=== PATIENT | female | born 1950 | race Caucasian/White ===

== ENCOUNTER 2020-10-03 18:03 | Emergency (ER) | payer MEDICARE, BC ==
--- NOTE | 2020-10-03 20:15 | EDM.PDOC ---
ED HPI GENERAL MEDICAL PROBLEM - General Chief Complaint: Upper Extremity Injury/Pain Stated Complaint: RT WRIST INJURY Time Seen by Provider: 10/03/20 18:59 Source of Information: Reports: Patient, RN Notes Reviewed History Limitations: Reports: No Limitations - History of Present Illness INITIAL COMMENTS - FREE TEXT/NARRATIVE: Patient is a 69-year-old male presenting to the emergency department with complaints of pain, swelling, deformity to her right wrist after falling. She states that she stumbled while she was working downstairs and fell forward catching herself with her wrist. She also fell onto her right knee which she had a knee replacement done on approximately 5 months ago so she is concerned that she may have damages. She has been able to bear weight without difficulty. Denies any previous fractures to her right wrist. Treatments PHYSICIAN ASSISTANT PSYCHIATRY: Reports: Other (see below) Other Treatments PHYSICIAN ASSISTANT PSYCHIATRY: none Right Wrist Pain Score (Numeric/FACES): 2 - Related Data Allergies Allergy/AdvReac Type Severity Reaction Status Date / Time No Known Allergies Allergy Verified 05/20/14 21:59 Home Meds: Home Meds Aspirin [Adult Aspirin] 81 mg PO DAILY 03/30/18 [History] Lisinopril 10 mg PO DAILY 03/30/18 [History] [place]-3/DHA/Epa/Fish Oil [Fish Oil 1,000 mg Softgel] 2 each PO DAILY 03/30/18 [History] Ondansetron [Zofran] 4 mg BUCCAL Q6H PRN #5 tab 03/30/18 [Rx] hydroCHLOROthiazide [Hydrochlorothiazide] 12.5 mg PO DAILY 03/30/18 [History] atorvaSTATin [Lipitor] 20 mg PO BEDTIME 10/03/20 [History] Past Medical History HEENT History: Reports: Impaired Vision Cardiovascular History: Reports: Hypertension Gastrointestinal History: Reports: Hemorrhoids - Infectious Disease History Infectious Disease History: Reports: Chicken Pox, Measles, Mumps - Past Surgical History Musculoskeletal Surgical History: Reports: Other (See Below) Other Musculoskeletal Surgeries/Procedures:: right knee videoscopy Social & Family History - Tobacco Use Tobacco Use Status *Q: Former Tobacco User Used Tobacco, but Quit: Yes Month/Year Tobacco Last Used: 30 yr - Caffeine Use Caffeine Use: Reports: Coffee, Soda, Tea - Recreational Drug Use Recreational Drug Use: No Review of Systems - Review of Systems Review Of Systems: Comprehensive ROS is negative, except as noted in HPI. ED EXAM, GENERAL - Physical Exam Exam: See Below Exam Limited By: No Limitations General Appearance: Alert, WD/WN, No Apparent Distress Respiratory/Chest: No Respiratory Distress, Lungs Clear, Normal Breath Sounds, No Accessory Muscle Use, Chest Non-Tender Cardiovascular: Normal Peripheral Pulses, Regular Rate, Rhythm, No Edema, No Gallop, No JVD, No Murmur, No Rub Extremities: Other (Abrasion to the right knee. Edema and deformity to the right wrist. CMS intact distally.) Neurological: Alert, Oriented, CN II-XII Intact, Normal Cognition, Normal Gait, Normal Reflexes, No Motor/Sensory Deficits Psychiatric: Normal Affect, Normal Mood Course - Vital Signs Last Recorded V/S: Last Vital Signs Temp 99.1 F 10/03/20 18:57 Pulse 53 L 10/03/20 18:57 Resp 20 10/03/20 18:57 BP 169/89 H 10/03/20 18:57 Pulse Ox 97 10/03/20 18:57 - Orders/Labs/Meds Orders: Active Orders 24 hr Category Date Time Status Knee Min 4V Rt [CR] Stat Exams 10/03/20 19:24 Taken Wrist Comp Min 3V Rt [CR] Stat Exams 10/03/20 19:24 Taken - Re-Assessments/Exams Free Text/Narrative Re-Assessment/Exam: 10/03/20 20:13 X-ray of the right knee shows no acute abnormalities. X-ray the right wrist shows fractures of both the distal radius and ulna. Images were reviewed by Dr. Yang, orthopedist. Indicate that no reduction is needed as this will require surgical intervention regardless. Patient has been placed in a custom, Ortho- Glass splint. CMS is intact after splint application. We will provide her with an arm sling. Recommend contacting Dr. Yang's office tomorrow to set up follow-up. Discharge instructions as documented. Departure - Departure Time of Disposition: 20:14 Disposition: Home, Self-Care 01 Condition: Good Clinical Impression: Closed fracture of radius and ulna Qualifiers: Encounter type: initial encounter Laterality: right Qualified Code(s): S52.91XA - Unspecified fracture of right forearm, initial encounter for closed fracture; S52.201A - Unspecified fracture of shaft of right ulna, initial encounter for closed fracture - Discharge Information *PRESCRIPTION DRUG MONITORING PROGRAM REVIEWED*: No *COPY OF PRESCRIPTION DRUG MONITORING REPORT IN PATIENT JAIDA: No Instructions: Wrist Fracture Treated With Immobilization, [id number] Referrals: Sonya Franco MD [Primary Care Provider] - Morris Yang MD [Physician] - Additional Instructions: You were seen in the emergency department today for pain, swelling, deformity to your right wrist after falling at home. X-rays were completed of the wrist and showed fractures of both the ulna and the radius. The x-rays of your knee were normal. You have been placed in a splint. This should remain on all times and be kept clean and dry. Recommend intermittent ice and elevation of the extremity. He may use Tylenol and ibuprofen as needed for discomfort. Referral has been sent to orthopedist, Dr. Yang. Contact his office tomorrow to set up follow-up. Return to ER for any new or worsening symptoms of concern. Sepsis Event Note (ED) - Evaluation Sepsis Screening Result: No Definite Risk - Focused Exam Vital Signs: Vital Signs Temp Pulse Resp BP Pulse Ox 10/03/20 18:57 99.1 F 53 L 20 169/89 H 97 - My Orders Last 24 Hours: My Active Orders 10/03/20 19:24 Knee Min 4V Rt [CR] Stat Wrist Comp Min 3V Rt [CR] Stat - Assessment/Plan Last 24 Hours: My Active Orders 10/03/20 19:24 Knee Min 4V Rt [CR] Stat Wrist Comp Min 3V Rt [CR] Stat
--- NOTE | 2020-10-04 06:06 | CR ---
Right wrist: 4 views of the right wrist were obtained. Comparison: No previous wrist study is available. Comminuted distal radial fracture is seen with displacement and impaction. Posterior tilt is noted of the distal radius. Articular extension is noted. Bony densities are noted around the CMC joint of the thumb compatible with degenerative change. Joint space narrowing is also noted within the CMC joint of the thumb. Mild joint space narrowing is noted of the distal navicular bone. Soft tissue swelling is seen. Impression: 1. Comminuted, displaced and angulated distal radial fracture showing articular extension. Fracture shows posteror tilt of the distal radial articular margin. 2. Degenerative change within the right wrist. 3. Soft tissue swelling. Diagnostic code #3
--- NOTE | 2020-10-04 06:16 | CR ---
Right knee: 4 views of the right knee were obtained. Comparison: No prior right knee study. Knee prosthesis is noted. Components are aligned. Small joint effusion is present. Slight osteopenia is noted. No acute fracture, dislocation or other bony abnormality is appreciated. Impression: 1. Knee prosthesis. 2. Small joint effusion is present. 3. Right knee study is otherwise unremarkable. Diagnostic code #2
== END 2020-10-03 20:59 | disposition home or self-care (01) ==
LOC: JD.ED 18:03
DX: S52.501A Unspecified fracture of the lower end of right radius, initial encounter for closed fracture (principal); S52.601A Unspecified fracture of lower end of right ulna, initial encounter for closed fracture; I10 Essential (primary) hypertension; Z79.82 Long term (current) use of aspirin; Z79.899 Other long term (current) drug therapy; Z87.891 Personal history of nicotine dependence; W01.0XXA Fall on same level from slipping, tripping and stumbling without subsequent striking against object, initial encounter
CPT/HCPCS: 29125; 73110-26-RT; 73110-RT; 73564-26-RT; 73564-RT; 99283; 99283-25

== ENCOUNTER 2020-10-07 08:19 | Day surgery (SDC) | payer MEDICARE, BC ==
--- NOTE | 2020-10-07 06:51 | PCM.PREANE ---
Preanesthetic Assessment - Procedure Proposed Procedure: right total knee arthroplasty - Anesthesia/Transfusion/Family Hx Anesthesia History: Prior Anesthesia Without Reaction Family History of Anesthesia Reaction: No Transfusion History: No Prior Transfusion(s) - Review of Systems General: No Symptoms Pulmonary: No Symptoms Cardiovascular: Dyspnea on Exertion Gastrointestinal: No Symptoms Neurological: No Symptoms Other: Reports: None - Physical Assessment NPO Status Date: 10/06/20 NPO Status Time: 00:00 Height: 1.57 m Weight: 72 kg ASA Class: 2 Mental Status: Alert & Oriented x3 Airway Class: Mallampati = 1 Dentition: Reports: Normal Dentition Thyro-Mental Finger Breadths: 3 Mouth Opening Finger Breadths: 3 ROM/Head Extension: Full Lungs: Clear to Auscultation, Normal Respiratory Effort Cardiovascular: Regular Rate, Regular Rhythm - Allergies Allergies/Adverse Reactions: Allergies Allergy/AdvReac Type Severity Reaction Status Date / Time No Known Allergies Allergy Verified 10/06/20 14:32 - Anesthesia Plan Pre-Op Medication Ordered: None - Acknowledgements Anesthesia Type Planned: Spinal, Regional Block (for post-op pain control) Pt an Appropriate Candidate for the Planned Anesthesia: Yes Alternatives and Risks of Anesthesia Discussed w Pt/Guardian: Yes Pt/Guardian Understands and Agrees with Anesthesia Plan: Yes PreAnesthesia Questionnaire HEENT History: Reports: Impaired Vision Cardiovascular History: Reports: Hypertension Gastrointestinal History: Reports: Hemorrhoids - Infectious Disease History Infectious Disease History: Reports: Chicken Pox, Measles, Mumps - Past Surgical History Musculoskeletal Surgical History: Reports: Arthroscopic Knee, Knee Replacement, Other (See Below) Other Musculoskeletal Surgeries/Procedures:: right knee videoscopy - SUBSTANCE USE Tobacco Use Status *Q: Former Tobacco User Tobacco Use Within Last Twelve Months: No Second Hand Smoke Exposure: No Days Per Week of Alcohol Use: 0 Number of Drinks Per Day: 0 Total Drinks Per Week: 0 Recreational Drug Use History: No - HOME MEDS Home Medications: Home Meds Aspirin [Adult Aspirin] 81 mg PO DAILY 03/30/18 [History] Lisinopril 10 mg PO DAILY 03/30/18 [History] hydroCHLOROthiazide [Hydrochlorothiazide] 12.5 mg PO DAILY 03/30/18 [History] atorvaSTATin [Lipitor] 20 mg PO BEDTIME 10/03/20 [History] Acetaminophen/HYDROcodone [[place] 325-5 MG] 1 - 2 tab PO Q4H PRN #30 tablet 10/07/20 [Rx]
[~2020-10-07 08:19] MED LIST: Bupivacaine 0.25% 10 ML SDV ONE; Lactated Ringers 1,000 ML IV SCH
--- NOTE | 2020-10-07 08:27 | PCM.PREANE ---
Preanesthetic Assessment - Procedure Proposed Procedure: ORIF of right distal radius with possible distal radioulnar joint pinning - Anesthesia/Transfusion/Family Hx Anesthesia History: Prior Anesthesia Without Reaction Family History of Anesthesia Reaction: No Transfusion History: No Prior Transfusion(s) Intubation History: Unknown - Review of Systems General: No Symptoms Pulmonary: No Symptoms (Fomer smoker: quit 30 yrs ago./ETOH: occasionally) Cardiovascular: No Symptoms (HTN, elevated cholesterol), Palpitations (occasionally) Gastrointestinal: No Symptoms (GERD-controlled.) Neurological: No Symptoms (motion sickness: scopalamine patch placed.), Syncope (7 yrs ago.) Other: Reports: None - Physical Assessment NPO Status Date: 10/06/20 NPO Status Time: 23:39 Vital Signs: HR: 84 Sat: 96% Temp: 98.1 Resp: 18 B/P: 143/65 Height: 1.65 m Weight: 91 kg ASA Class: 3 Mental Status: Alert & Oriented x3 Airway Class: Mallampati = 3 Dentition: Reports: Normal Dentition, [place] Thyro-Mental Finger Breadths: 3 Mouth Opening Finger Breadths: 3 ROM/Head Extension: Full Lungs: Clear to Auscultation, Normal Respiratory Effort Cardiovascular: Regular Rate, Regular Rhythm, No Murmurs - Lab Values: All labs reviewed and noted and within acceptable ranges to proceed with scheduled procedure. - Imaging/EKG Impressions: EKG: - Allergies Allergies/Adverse Reactions: Allergies Allergy/AdvReac Type Severity Reaction Status Date / Time No Known Allergies Allergy Verified 10/07/20 08:54 - Anesthesia Plan Pre-Op Medication Ordered: None - Acknowledgements Anesthesia Type Planned: General Anesthesia Pt an Appropriate Candidate for the Planned Anesthesia: Yes Alternatives and Risks of Anesthesia Discussed w Pt/Guardian: Yes Pt/Guardian Understands and Agrees with Anesthesia Plan: Yes PreAnesthesia Questionnaire HEENT History: Reports: Impaired Vision Cardiovascular History: Reports: Hypertension Gastrointestinal History: Reports: Hemorrhoids - Infectious Disease History Infectious Disease History: Reports: Chicken Pox, Measles, Mumps - Past Surgical History Musculoskeletal Surgical History: Reports: Arthroscopic Knee, Knee Replacement, Other (See Below) Other Musculoskeletal Surgeries/Procedures:: right knee videoscopy - SUBSTANCE USE Tobacco Use Status *Q: Former Tobacco User Tobacco Use Within Last Twelve Months: No Second Hand Smoke Exposure: No Days Per Week of Alcohol Use: 0 Number of Drinks Per Day: 0 Total Drinks Per Week: 0 Recreational Drug Use History: No - HOME MEDS Home Medications: Home Meds Aspirin [Adult Aspirin] 81 mg PO DAILY 03/30/18 [History] Lisinopril 10 mg PO DAILY 03/30/18 [History] hydroCHLOROthiazide [Hydrochlorothiazide] 12.5 mg PO DAILY 03/30/18 [History] atorvaSTATin [Lipitor] 20 mg PO BEDTIME 10/03/20 [History] Acetaminophen/HYDROcodone [[place] 325-5 MG] 1 - 2 tab PO Q4H PRN #30 tablet 10/07/20 [Rx] - CURRENT (IN HOUSE) MEDS Current Meds: Current Medications Discontinued Medications Bupivacaine HCl (Bupivacaine 0.25% 10 Ml Sdv) Confirm Administered Dose 30 ml .ROUTE .STK-MED ONE Stop: 10/07/20 08:20
[2020-10-07] MEDS ORDERED: Bupivacaine 0.25% 10 ML SDV ONE (08:44)
[2020-10-07] MEDS ORDERED: HYDROmorphone 0.5 MG/0.5 ML Syringe ONE ×3 (08:45→13:07)
[2020-10-07] MEDS ORDERED: Dexamethasone 4 MG/ML 5 ML MDV ONE (08:45)
[2020-10-07] MEDS ORDERED: Lidocaine 1% 4 ML ONE (08:45)
[2020-10-07] MEDS ORDERED: Midazolam 1 MG/ML 2 ML SDV ONE (08:45)
[2020-10-07] MEDS ORDERED: ceFAZolin 1 GM Vial ONE (08:45)
[2020-10-07] MEDS ORDERED: Ondansetron 4 MG/2 ML SDV ONE (08:45)
[2020-10-07] MEDS ORDERED: Rocuronium 50 MG/5 ML Vial ONE (08:45)
[2020-10-07] MEDS ORDERED: Lactated Ringers 1,000 ML ONE ×2 (08:45→11:25)
[2020-10-07] MEDS ORDERED: Ketamine 500 mg/10 ML MDV ONE (08:46)
[2020-10-07] MEDS ORDERED: Propofol 200 MG/20 ML SDV ONE (08:46)
[2020-10-07] MEDS ORDERED: fentaNYL 250 MCG/5 ML SDV ONE (08:46)
[2020-10-07] MEDS ORDERED: Lidocaine 1%/Sod Bicarbonate in NS 8.4% 1 ML Syringe IDERM PRN (08:55)
[2020-10-07] MEDS ORDERED: Sodium Chloride 0.9% 10 ML Syringe FLUSH PRN (08:55)
[2020-10-07] MEDS ORDERED: Scopolamine 1.5 MG Transdermal Patch TRDERM ONE (09:14)
[2020-10-07] MEDS ORDERED: ePHEDrine 50 MG/ML SDV ONE (10:56)
[2020-10-07] MEDS ORDERED: ePHEDrine 50 MG/ML SDV IVPUSH PRN (11:01)
[2020-10-07] MEDS ORDERED: HYDROmorphone 0.5 MG/0.5 ML Syringe IVPUSH PRN (11:01)
[2020-10-07] MEDS ORDERED: Ondansetron 4 MG/2 ML SDV IVPUSH PRN (11:01)
[2020-10-07] MEDS ORDERED: diphenhydrAMINE 50 MG/ML SDV IVPUSH PRN (11:01)
[2020-10-07] MEDS ORDERED: fentaNYL 100 MCG/2 ML SDV IVPUSH PRN (11:01)
[2020-10-07] MEDS ORDERED: Ketorolac 30 MG/ML SDV ONE (12:47)
--- NOTE | 2020-10-07 13:29 | PCM.POSTAN ---
POST ANESTHESIA ASSESSMENT - MENTAL STATUS Mental Status: Alert - VITAL SIGNS Vital Signs: Last Vital Signs Temp 98.9 10/07/20 1323 Pulse 103 10/07/20 1323 Resp 13 10/07/20 1323 BP 155/78 10/07/20 1323 Pulse Ox 96% 10/07/20 1323 - RESPIRATORY Respiratory Status: Respiratory Rate WNL, Airway Patent, O2 Saturation Stable, Supplemental Oxygen - CARDIOVASCULAR CV Status: Pulse Rate WNL, Blood Pressure Stable - GASTROINTESTINAL GI Status: No Symptoms - POST OP HYDRATION Hydration Status: Adequate & Stable
--- NOTE | 2020-10-07 13:30 | CR ---
Right wrist: 5 fluoroscopic spot views were obtained of the right wrist utilizing C-arm device in the operating room. Comparison: Prior right wrist study of 10/03/20. Study shows reduction of previous displaced radial fracture. Plate and screws are in place with good anatomic alignment being seen on the final films. Fluoroscopy time is given as 287.5 seconds. Impression: 1. Procedural study as noted above. Diagnostic code #2
--- NOTE | 2020-10-07 14:08 | PCM48HPAN ---
Post Anesthesia Note - EVALUATION WITHIN 48HRS OF ANESTHETIC Vital Signs in Normal Range: Yes Patient Participated in Evaluation: Yes Respiratory Function Stable: Yes Airway Patent: Yes Cardiovascular Function Stable: Yes Hydration Status Stable: Yes Pain Control Satisfactory: Yes Nausea and Vomiting Control Satisfactory: Yes Mental Status Recovered: Yes Vital Signs: Last Vital Signs Temp 36.4 C 10/07/20 13:50 Pulse 88 10/07/20 13:50 Resp 11 L 10/07/20 13:50 BP 151/75 H 10/07/20 13:50 Pulse Ox 98 10/07/20 13:50
[2020-10-07] MEDS ORDERED: Acetaminophen/HYDROcodone 325-5 MG Tab PO ONE ×2 (15:00)
--- NOTE | 2020-10-13 11:39 | PCM.SN.2 ---
#1 Interpretation EKG Date: 10/07/20 Rhythm: NSR Rate (Beats/Min): 76 [place]: Normal P-Wave: Present QRS: Normal ST-T: Normal QT: Normal
--- NOTE | 2020-10-14 11:11 | PCM.OPNOTE ---
- General Post-Op/Procedure Note Date of Surgery/Procedure: 10/07/20 Operative Procedure(s): open reduction internal fixation right comminuted distal radius fracture with pinning of distal radial ulnar joint Pre Op Diagnosis: comminuted displaced intraarticular right distal radius fracture with DRUJ instability Post-Op Diagnosis: Same Anesthesia Technique: General LMA, Local Primary Surgeon: Morris Yang Anesthesia Provider: Minal Zhou Brim Presser: Juliet Roblero in mLs: 5 Complications: None Condition: Good
--- NOTE | 2020-10-19 08:39 | OR ---
DATE OF OPERATION: 10/07/2020 SURGEON: Morris Yang MD OPERATION PERFORMED: Open reduction and internal fixation of right comminuted distal radius fracture with pinning of the distal radioulnar joint. PREOPERATIVE DIAGNOSIS: Comminuted displaced intra-articular right distal radius fracture with distal radioulnar joint instability. POSTOPERATIVE DIAGNOSIS: Comminuted displaced intra-articular right distal radius fracture with distal radioulnar joint instability. ANESTHESIA: General LMA with local. ANESTHESIA PROVIDER: Minal Zhou CRNA REFERENCE DATA EXPERT: Juliet Roblero PA-C ESTIMATED BLOOD LOSS: 5 mL. COMPLICATIONS: None. CONDITION: Stable. DESCRIPTION OF PROCEDURE: The patient was identified in the preoperative holding area. Proper site was marked and identified by the surgeon. The patient was taken back to the operative theater, where after adequate anesthesia, the patient's right upper extremity had a nonsterile tourniquet applied and was sterilely prepped and draped in the usual sterile fashion. OR time-out was performed. The patient received 2 g IV Ancef. Right upper extremity was exsanguinated. Tourniquet was insufflated to 200 mmHg. Standard anterior volar approach of Sha was undertaken. FCR tendon was then retracted to protect the median nerve. The patient was noted to have significant stripping of soft tissue as well as muscle belly over the distal radius already. Right distal radius fracture was identified. At this time, I attempted to do K-wires as well as closed reduction maneuver, but the dorsal fragment continued to remain significantly unstable. At this time, I did have to do a small minimal approach dorsally to reduce the fragment just distal to Carmen tubercle making sure to protect the second extensor compartment. At this time, I was able to somewhat get a reduction just a small amount of the dorsal. Cortex was then not fixated, but I was able to obtain radial height as well as volar tilt, which was fairly obtained at the joint line and with concentric reduction of the joint line on both AP lateral and 23-degree lateral views. This did have significant instability throughout the case and was much more difficult than even a regular intra-articular distal radius fracture secondary to the poor bone quality as well as severe amount of displacement and multiple fragments. The volar plate was then applied. Pins were then placed and locking screws as well as nonlocking screw was then placed to fix the plate to the volar side. I was able to obtain fixation to all fragments other than the very dorsal cortex with near anatomic reduction. At this time, I did do a Shuck test of DRUJ and it was found to be grossly unstable. I was then able to place a K-wire across the distal radioulnar joint, reducing it, making sure that it was not displaced dorsally or volarly. At this time, adequate saline was irrigated through the wounds. 3-0 Vicryl was used for closure of the incisions as well as Monocryl. The patient was placed in a sterile soft dressing as well as a volar slab splint and sent to the PACU in stable condition. Again, this was a significantly increased difficulty secondary to the comminuted nature and poor bone quality. DOMINIC /[id number]
== END 2020-10-07 15:46 | disposition home or self-care (01) ==
LOC: JD.SDS 08:19
PROVIDERS: ATTEND Orthopaedic Surgery
DX: S52.571A Other intraarticular fracture of lower end of right radius, initial encounter for closed fracture (principal); I10 Essential (primary) hypertension; Z79.82 Long term (current) use of aspirin; Z79.899 Other long term (current) drug therapy; Z87.891 Personal history of nicotine dependence
CPT/HCPCS: 25608; 36415; 76000; 80053; 93005; A9270; C1713; C1776; J0690; J1100; J1170; J1885; J2250; J2405; J2704; J3010; J3490; J7120; 01830; J2370

== ENCOUNTER 2021-06-23 06:38 | Day surgery (SDC) | payer MEDICARE, BC ==
[~2021-06-23 06:38] MED LIST changes: -Bupivacaine 0.25% 10 ML SDV ONE; +Lidocaine 1%/Sod Bicarbonate in NS 8.4% 1 ML Syringe IDERM PRN; +Sodium Chloride 0.9% 10 ML Syringe FLUSH PRN; +Sodium Chloride 0.9% 10 ML Syringe FLUSH SCH; +ceFAZolin 2 GM in Premix Bag 1 BAG IV SCH; +ceFAZolin 2 GM in Sodium Chloride 0.9% 50 ML IV ONE
[2021-06-23] MEDS ORDERED: Lidocaine 1% 30 ML SDV ONE (06:42)
[2021-06-23] MEDS ORDERED: Bupivacaine 0.25%/EPINEPHrine 1:200,000 30 ML SDV ONE (06:42)
[2021-06-23] MEDS ORDERED: Bupivacaine 0.25% 10 ML SDV ONE (07:06)
== END 2021-06-23 07:40 | disposition home or self-care (01) ==
LOC: JD.SDS 06:38
PROVIDERS: ATTEND Orthopaedic Surgery
DX: M65.842 Other synovitis and tenosynovitis, left hand (principal); M65.312 Trigger thumb, left thumb; G47.33 Obstructive sleep apnea (adult) (pediatric); I10 Essential (primary) hypertension; E78.00 Pure hypercholesterolemia, unspecified; Z79.82 Long term (current) use of aspirin; Z79.899 Other long term (current) drug therapy; Z98.890 Other specified postprocedural states; Z87.891 Personal history of nicotine dependence
CPT/HCPCS: 26055; J3490; J7120